=== PATIENT | male | born 1960 | race Caucasian/White ===

== ENCOUNTER 2019-11-09 16:12 | Emergency (ER) | payer MEDICAID, SELFPAY ==
[~2019-11-09] VITALS: Ht 170.2 cm; Wt 69.1 kg
[2019-11-09 16:48] LABS: BASO # 0.1 10^3/uL (0.0-0.2); BASO % 0.9 % (0.0-1.0); EOS # 1.6 10^3/uL (0.0-0.5); EOS % 13.7 % (0.0-3.0); HEMOGLOBIN 13.6 g/dl (13.5-17.5); LYMPH # 3.5 10^3/uL (1.5-5.0); LYMPH % 31.1 % (24.0-44.0); MEAN CORPUSCULAR HEMOGLOBIN 25.3 pg (27.0-33.0); MEAN CORPUSCULAR HGB CONC 32.4 g/dl (32.0-36.5); MEAN CORPUSCULAR VOLUME 78.1 fl (80.0-96.0); MONO # 0.8 10^3/uL (0.0-0.8); MONO % 7.1 % (0.0-5.0); NEUTROPHILS # 5.3 10^3/uL (1.5-8.5); NEUTROPHILS % 46.9 % (36.0-66.0); PLATELET COUNT, AUTOMATED 246 10^3/uL (150-450); RED BLOOD COUNT 5.38 10^6/uL (4.30-6.10); WHITE BLOOD COUNT 11.4 10^3/uL (4.0-10.0)
[2019-11-09 17:35] LABS: MAGNESIUM LEVEL 1.8 MG/DL (1.8-2.4); PHOSPHORUS LEVEL 3.4 MG/DL (2.5-4.9)
[2019-11-09 17:42] LABS: BLOOD UREA NITROGEN 12 MG/DL (7-18); CALCIUM LEVEL 8.7 MG/DL (8.5-10.1); CARBON DIOXIDE LEVEL 25 MEQ/L (21-32); CHLORIDE LEVEL 109 MEQ/L (98-107); CK-MB VALUE MASS 16.1 NG/ML (<3.6); CPK CREATINE PHOSPHOKINASE 846 U/L (39-308); CREATININE FOR GFR 1.05 MG/DL (0.70-1.30); FREE T4 0.96 NG/DL (0.76-1.46); GLOMERULAR FILTRATION RATE > 60.0 (>56); GLUCOSE, FASTING 109 MG/DL (70-100); POTASSIUM SERUM 4.2 MEQ/L (3.5-5.1); SODIUM LEVEL 140 MEQ/L (136-145); TROPONIN I 0.08 NG/ML (< 0.10)
--- NOTE | 2019-11-09 17:50 | REP ---
HISTORY: Dyspnea. COMPARISON: None. FINDINGS: The superior mediastinal structures are midline. The cardiac silhouette is unremarkable in size, shape and position. The diaphragmatic surfaces of the lungs are regular and the costophrenic angles are clear. The pulmonary gaviria are clear. The imaged osseous structures are intact. IMPRESSION: There is no acute cardiopulmonary disease. Electronically Signed by Hilario Corona DO 11/09/2019 06:21 P
[2019-11-09] MEDS ORDERED: NS 1,000 ML IV ONE (18:00)
[2019-11-09 22:43] LABS: CK-MB VALUE MASS 11.4 NG/ML (<3.6); MB/CK RELATIVE INDEX 1.83 (< OR =4); TROPONIN I 0.21 NG/ML (< 0.10)
--- NOTE | 2019-11-09 22:53 | ECGEPIP ---
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
--- NOTE | 2019-11-09 23:01 | ECGEPIP ---
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
[2019-11-09 23:31] VITALS: BP 141/85
[2019-11-10] MEDS ORDERED: METO1TAB32 PO (12:37)
[2019-11-10] MEDS ORDERED: ASPI81TAEC PO (12:37)
== END 2019-11-09 23:34 | disposition left against medical advice (07) ==
LOC: EDBD 16:12 → M ED 16:12
DX: R00.0 Tachycardia, unspecified (principal); R94.31 Abnormal electrocardiogram [ECG] [EKG]; R79.89 Other specified abnormal findings of blood chemistry; F17.200 Nicotine dependence, unspecified, uncomplicated; T59.94XA Toxic effect of unspecified gases, fumes and vapors, undetermined, initial encounter; Z53.21 Procedure and treatment not carried out due to patient leaving prior to being seen by health care provider

== ENCOUNTER 2019-11-10 00:07 | Observation (INO) | payer MEDICAID, SELFPAY ==
[~2019-11-10] VITALS: Ht 170.2 cm; Wt 77.1 kg
[2019-11-10] MEDS ORDERED: ISOVUE-370 76% 100ML VIAL (Q9967) As Ordered ONE (02:03)
--- NOTE | 2019-11-10 03:16 | REPVR ---
PROCEDURE INFORMATION: Exam: CT Angiography Chest With Contrast Exam date and time: 11/10/2019 1:50 AM Age: 59 years old Clinical indication: Abnormal findings; Abnormal diagnostic tests; Abnormal wbc; Additional info: SOB, elevated trops TECHNIQUE: Imaging protocol: Computed tomographic angiography of the chest with intravenous contrast. 3D rendering: MIP and/or 3D reconstructed images were created by the technologist. Radiation optimization: All CT scans at this facility use at least one of these dose optimization techniques: automated exposure control; mA and/or kV adjustment per patient size (includes targeted exams where dose is matched to clinical indication); or iterative reconstruction. Contrast material: ISO; Contrast volume: 75 ml; Contrast route: AC; COMPARISON: CR Chest, 2 view PA, Lat 2019-11-09 16:47 FINDINGS: Pulmonary arteries: No filling defects in the pulmonary arteries to suggest pulmonary emboli. Aorta: Unremarkable. No aortic aneurysm. No aortic dissection. Lungs: Scarring in the lung apices. Dependent subsegmental pulmonary atelectasis. Couple tiny pulmonary nodules, there is a nodule in the right lower lobe near the fissure measuring 3 mm. Pleural space: Unremarkable. No pneumothorax. No pleural effusion. Heart: Pronounced left cardiac ventricular wall thickening with a small focal area of low attenuation suggesting a previous myocardial infarction, recommend cardiology followup to evaluate for cardiomyopathy. Lymph nodes: Unremarkable. No enlarged lymph nodes. Bones/joints: Unremarkable. No acute fracture. Soft tissues: Unremarkable. IMPRESSION: 1. Pronounced left cardiac ventricular wall thickening with a small focal area of low attenuation suggesting a previous myocardial infarction, recommend cardiology followup to evaluate for cardiomyopathy. 2. Couple tiny pulmonary nodules, there is a nodule in the right lower lobe near the fissure measuring 3 mm. 3. No filling defects in the pulmonary arteries to suggest pulmonary emboli. COMMENT: As per Fleischner Society guidelines for follow-up and management of pulmonary nodules: For patients at low risk (minimal or absent history of smoking and of other known risk factors), no follow-up needed. For patient at high risk (history of smoking or of other known risk factors), recommend follow-up chest CT at 12 months; if unchanged, no further follow-up needed. Electronically signed by: Hayes Cash On 11/10/2019 03:16:20 AM
[2019-11-10] MEDS ORDERED: METOPROLOL TART 25 MG TABLET PO ONE (04:00)
[2019-11-10] MEDS ORDERED: ASPIRIN 81 MG CHEW TABLET PO ONE (04:00)
[2019-11-10 05:03] LABS: HEMATOCRIT 37.2 % (42.0-52.0); HEMOGLOBIN 11.8 g/dl (13.5-17.5); MEAN CORPUSCULAR HEMOGLOBIN 24.6 pg (27.0-33.0); MEAN CORPUSCULAR HGB CONC 31.7 g/dl (32.0-36.5); MEAN CORPUSCULAR VOLUME 77.5 fl (80.0-96.0); PLATELET COUNT, AUTOMATED 222 10^3/uL (150-450); WHITE BLOOD COUNT 12.5 10^3/uL (4.0-10.0)
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
[2019-11-10 05:22] LABS: BLOOD UREA NITROGEN 9 MG/DL (7-18); CALCIUM LEVEL 8.2 MG/DL (8.5-10.1); CARBON DIOXIDE LEVEL 27 MEQ/L (21-32); CHLORIDE LEVEL 108 MEQ/L (98-107); CHOLESTEROL LEVEL 194 MG/DL (<200); CHOLESTEROL RISK RATIO 6.258 (<5); CREATININE FOR GFR 1.16 MG/DL (0.70-1.30); GLOMERULAR FILTRATION RATE > 60.0 (>56); GLUCOSE, FASTING 90 MG/DL (70-100); HDL CHOLESTEROL 31 MG/DL (>40); LDL CHOLESTEROL 129 MG/DL (<100); NON-HDL-C 163 MG/DL; POTASSIUM SERUM 4.7 MEQ/L (3.5-5.1); SODIUM LEVEL 140 MEQ/L (136-145); TRIGLYCERIDES LEVEL 170 MG/DL (<150)
[2019-11-10 05:23] LABS: CK-MB VALUE MASS 9.3 NG/ML (<3.6); MB/CK RELATIVE INDEX 1.72 (< OR =4); TROPONIN I 0.18 NG/ML (< 0.10)
[2019-11-10 05:30] VITALS: BP 135/80
[2019-11-10] MEDS ORDERED: ATORVASTATIN 20 MG TAB PO SCH ×2 (09:00→21:00)
[2019-11-10] MEDS ORDERED: HEPARIN SOD (PORCINE) 5000 UNITS/ML VIAL SQ SCH (09:00)
[2019-11-10] MEDS ORDERED: METOPROLOL SUCC *XL* 25MG TAB (TopROL *XL*) PO SCH (09:00)
[2019-11-10 09:31] VITALS: BP 153/93
[2019-11-10] MEDS ORDERED: HEPARIN DRIP 25,000 UNITS in IV 1 EA IV SCH (09:38)
[2019-11-10] MEDS ORDERED: HEPARIN SOD (PORCINE) 5000 UNITS/ML VIAL IV PRN (09:45)
[2019-11-10] MEDS ORDERED: TICAGRELOR 90 MG TABLET (BRILINTA) PO ONE (10:30)
[2019-11-10 11:29] VITALS: BP 140/80
[2019-11-10 11:36] VITALS: BP 140/80
--- NOTE | 2019-11-10 11:54 | ECGEPIP ---
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 Electronically Signed on 11-10-2019 11:54:51 EST by Hayes Osman
--- NOTE | 2019-11-10 11:57 | ECGEPIP ---
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
[2019-11-10] MEDS ORDERED: SLF 3 ML SYR IV PRN (12:30)
[2019-11-10] MEDS ORDERED: ASPI81TAEC PO (12:37)
[2019-11-10] MEDS ORDERED: METO1TAB32 PO (12:37)
[2019-11-10] MEDS ORDERED: SLF 3 ML SYR IV SCH (14:00)
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
--- NOTE | 2019-11-10 14:29 | ECHO ---
DATE OF PROCEDURE: 11/10/2019 REFERRING PHYSICIAN: Dr. Andreas Bennett INDICATION: Dyspnea. HEIGHT: 170 cm WEIGHT: 76 kg 2D MEASUREMENTS: Ventricular septum: 1.98 cm Posterior wall: 1.38 cm Left ventricle diastole: 4.2 cm Left ventricle systole: 2.1 cm LVOT: 1.9 cm Aortic root: 2.8 cm Left atrium 3.1 cm Left atrial volume index: 58 Inferior vena cava: 1.7 cm (more than 50% respiratory variation). DOPPLER MEASUREMENTS: Aortic valve velocity: 202 cm/s LVOT velocity: 207 cm/s LVOT VTI: 38.4 cm Mild mitral regurgitation. Mitral E velocity: 104 cm/s Mitral A velocity: 83.2 cm/s Mitral deceleration time: 148 ms Very mild tricuspid regurgitation. Estimated right ventricle systolic pressure: 19-24 mmHg assuming a right atrial pressure of 5-10 mmHg. No pulmonic regurgitation. Pulmonary acceleration time: 137 milliseconds MITRAL ANNULAR TISSUE DOPPLER: E prime septal: 6.53 cm/s E prime lateral: 6.21 cm/s DESCRIPTION: Rhythm was sinus, image quality was adequate. This was a 2D M-mode, color flow Doppler and pulse wave Doppler examination and included mitral annular tissue Doppler. CONCLUSIONS: 1. Severe left ventricle hypertrophy, which was asymmetrical (symmetrical septal hypertrophy). Normal regional LV wall motion and wall thickening. Normal LV systolic function. Left ventricular ejection fraction 65 to 70% by visual estimate. Speckle pattern involving the ventricular septum. No dynamic intracavitary obstruction; however, mild increase in left ventricle outflow tract (LVOT) velocity. No systolic anterior motion of the mitral leaflets. Grade II LV diastolic dysfunction (pseudonormal LV diastolic filling pattern). 2. Structurally normal appearing mitral leaflets without mitral valve prolapse. No systolic anterior motion. Mild mitral regurgitation, which was directed posteriorly. 3. Normal right ventricle size. Right ventricle hypertrophy. Suggestive of normal pulmonary artery systolic pressure. Suggestive of normal estimated right ventricle systolic pressure. Suggestive of normal central venous pressure (5-10 mmHg). 4. By visual estimate, there appeared to be moderate left atrial dilatation. Left atrial volume index suggested severe left atrial enlargement; however, the two chamber view for aquisition of the left atrial volume index did not appear to be accurate due to image drop out of the anterior wall of the left atrium. 5. Mild aortic valve sclerosis of a 3-cusp aortic valve. No aortic regurgitation. 6. No pericardial effusion.
--- NOTE | 2019-11-10 20:10 | DS.PDOC ---
Discharge Summary General Date of Admission Nov 10, 2019 at 00:08 Date of Discharge 11/10/19 Attending Physician: JENNIFER CAMEJO MD Discharge Summary PROCEDURES PERFORMED DURING STAY: None ADMITTING DIAGNOSES: 1. Carbon monoxide exposure, hypertrophic cardiomyopathy DISCHARGE DIAGNOSES: 1. Carbon monoxide exposure, hypertrophic cardiomyopathy COMPLICATIONS/CHIEF COMPLAINT: Abnormal Ekg, Elevated Troponin. HISTORY OF PRESENT ILLNESS: 59 y.o male reportedly without any significant PMH was admitted for carbon monoxide exposure, EKG changes & troponinemia. Based on EKG & symptoms, it was suspected that patient had an NSTEMI, underwent LHC 1 year ago, reports obtained from [facility] in [place] which do no show extensive coronary disease at that time. He was starting on NSTEMI treatment, stat TTE showed severe LVH suggestive of hypertrophic cardiomyopathy, which coul d also explain the patient's EKG changes (ST depressions & deep T-wave inversions in the infero-lateral leads). Patient was evaluated by Cardiology (Dr. Quezada), his evaluation and recommendations are greatly appreciated, patient likely had slight troponin leakage related to Type II ischemia from C arbon monoxide exposure. Medical management for NSTEMI was discontinued prior to being initiated and patient will be discharged with outpatient follow up w/ Dr. Quezada & PCP. Patient will be discharged on Aspirin 81 mg & low dose Metoprolol Succinate as new medications. patient is advised to follow closely with Dr. Quezada for further management of his hypertrophic cardiomyopathy. Patient has remained asymptomatic since admission, currently he is clinically and hemodynamically stable for discharge. HOSPITAL COURSE: As above DISCHARGE MEDICATIONS: Please see below. ALLERGIES: Please see below. PHYSICAL EXAMINATION ON DISCHARGE: VITAL SIGNS: Please see below. GENERAL: No distress HEENT: normocephalic, atraumatic, moist mucous membranes NECK: supple CARDIOVASCULAR EXAMINATION: S1, S2, Systolic murmur appreciated RESPIRATORY EXAMINATION: clear to auscultation ABDOMINAL EXAMINATION: soft, non-tender, non-distended, +BS EXTREMITIES: ROM intact SKIN: no rash NEUROLOGICAL EXAMINATION: no focal deficits PSYCHIATRIC EXAMINATION: calm and cooperative LABORATORY DATA: Please see below. IMAGING: TTE w/ significant LVH, normal EF, no wall motion abnormalities PROGNOSIS: Fair ACTIVITY: As tolerated DIET: Cardiac DISCHARGE PLAN: Follow up w/ Straight Knife Machine Cutter & PCP in 1-2 weeks DISPOSITION: 01 Home, Self-Care. DISCHARGE INSTRUCTIONS: 1. as above DISCHARGE CONDITION: Stable TIME SPENT ON DISCHARGE: Greater than 35 minutes. Vital Signs/I&Os Vital Signs Date Time Temp Pulse Resp B/P (MAP) Pulse Ox O2 Delivery O2 Flow Rate FiO2 11/10/19 11:36 98.1 73 18 140/80 (100) 99 Room Air Laboratory Data Labs 24H Laboratory Tests 2 11/10/19 04:43: Nucleated Red Blood Cells % (auto) 0.0, Anion Gap 5L, Glomerular Filtration Rate > 60.0, Calcium Level 8.2L, Total Creatine Kinase 541H, Creatine Kinase MB 9.3H, Creatine Kinase MB Relative Index 1.72, Troponin I 0.18H, Triglycerides Level 170H, Total Cholesterol 194, LDL Cholesterol 129H, Non-HDL Cholesterol (LDL + VLDL) 163, Total HDL Cholesterol 31L, Cholesterol/HDL Ratio 6.258H 11/10/19 08:44: Troponin I 0.11#H 11/10/19 10:15: Activated Partial Thromboplast Time 34.0 CBC/BMP Laboratory Tests 11/10/19 04:43 Discharge Medications Scheduled Aspirin (Aspirin EC) 81 Mg Tablet.dr, 81 MG PO DAILY Metoprolol Succinate (Metoprolol Succinate) 25 Mg Tab.er.24h, 25 MG PO DAILY Allergies Coded Allergies: No Known Allergies (Unverified , 11/09/19) JENNIFER CAMEJO MD Nov 10, 2019 20:09
[2019-11-10] MEDS ORDERED: TICAGRELOR 90 MG TABLET (BRILINTA) PO SCH (21:00)
[2019-11-11] MEDS ORDERED: ASPIRIN 81 MG ENTERIC TAB PO SCH (09:00)
== END 2019-11-10 14:34 | disposition home or self-care (01) ==
LOC: M ED 00:07 → M ED INP 00:08 → M MSPAV 05:29 → M PCU 09:09
PROVIDERS: ADMIT Internal Medicine; ATTEND Internal Medicine
DX: Z77.098 Contact with and (suspected) exposure to other hazardous, chiefly nonmedicinal, chemicals (principal); I42.2 Other hypertrophic cardiomyopathy; R94.31 Abnormal electrocardiogram [ECG] [EKG]; R74.8 Abnormal levels of other serum enzymes; R91.8 Other nonspecific abnormal finding of lung field; R06.02 Shortness of breath; Z79.899 Other long term (current) drug therapy; Z79.82 Long term (current) use of aspirin; F17.210 Nicotine dependence, cigarettes, uncomplicated
CPT/HCPCS: 36415; 71275; 80048; 80061; 82550; 82553; 85027; 85730; 93005; 93306; 96372; 99285; Q9967

== ENCOUNTER 2019-11-14 17:34 | Emergency (ER) | payer MEDICAID, SELFPAY ==
[~2019-11-14] VITALS: Ht 170.2 cm; Wt 73.1 kg
[~2019-11-14 17:34] MED LIST: ASPI81TAEC PO; METO1TAB32 PO
[2019-11-14 17:54] LABS: BASO # 0.1 10^3/uL (0.0-0.2); BASO % 0.7 % (0.0-1.0); EOS # 1.2 10^3/uL (0.0-0.5); HEMATOCRIT 40.8 % (42.0-52.0); HEMOGLOBIN 12.7 g/dl (13.5-17.5); LYMPH # 3.9 10^3/uL (1.5-5.0); LYMPH % 30.4 % (24.0-44.0); MEAN CORPUSCULAR HEMOGLOBIN 24.3 pg (27.0-33.0); MEAN CORPUSCULAR HGB CONC 31.1 g/dl (32.0-36.5); MEAN CORPUSCULAR VOLUME 78.2 fl (80.0-96.0); MONO # 0.9 10^3/uL (0.0-0.8); MONO % 6.8 % (0.0-5.0); NEUTROPHILS # 6.8 10^3/uL (1.5-8.5); NEUTROPHILS % 52.7 % (36.0-66.0); PLATELET COUNT, AUTOMATED 258 10^3/uL (150-450); RED BLOOD COUNT 5.22 10^6/uL (4.30-6.10); WHITE BLOOD COUNT 12.9 10^3/uL (4.0-10.0)
[2019-11-14 18:05] LABS: INR 1.12; PROTHROMBIN TIME 14.1 SECONDS (11.8-14.0)
[2019-11-14 18:06] LABS: PARTIAL THROMBOPLASTIN TIME 33.1 SECONDS (25.0-38.4)
--- NOTE | 2019-11-14 18:14 | REP ---
Clinical: Chest pain . Comparison: 11/09/2019 . Findings: The mediastinum and cardiac silhouette are stable and within normal limits for portable technique. The lung gaviria are clear without acute consolidation, effusion, or pneumothorax. Skeletal structures are intact. Impression: No acute cardiopulmonary process appreciated. Electronically Signed by Julius Montalvo MD 11/14/2019 06:06 P
[2019-11-14 18:23] LABS: ALBUMIN 3.7 GM/DL (3.2-5.2); ALT/SGPT 29 U/L (12-78); BILIRUBIN,DIRECT 0.1 MG/DL (0.0-0.2); BILIRUBIN,TOTAL 0.6 MG/DL (0.2-1.0); BLOOD UREA NITROGEN 16 MG/DL (7-18); CALCIUM LEVEL 8.7 MG/DL (8.5-10.1); CARBON DIOXIDE LEVEL 27 MEQ/L (21-32); CHLORIDE LEVEL 103 MEQ/L (98-107); CK-MB VALUE MASS 6.3 NG/ML (<3.6); CPK CREATINE PHOSPHOKINASE 509 U/L (39-308); CREATININE FOR GFR 1.25 MG/DL (0.70-1.30); FREE T4 0.99 NG/DL (0.76-1.46); GLOMERULAR FILTRATION RATE > 60.0 (>56); GLUCOSE, FASTING 101 MG/DL (70-100); LIPASE 128 U/L (73-393); MB/CK RELATIVE INDEX 1.24 (< OR =4); NT-PRO BNP 547 PG/ML (<125); POTASSIUM SERUM 3.7 MEQ/L (3.5-5.1); SODIUM LEVEL 139 MEQ/L (136-145); TOTAL PROTEIN 7.3 GM/DL (6.4-8.2); TROPONIN I 0.09 NG/ML (< 0.10)
[2019-11-14] MEDS ORDERED: atenoloL 50 MG TAB PO ONE (18:45)
--- NOTE | 2019-11-14 19:39 | ECGEPIP ---
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
[2019-11-14] MEDS ORDERED: ATEN50TA2 PO (20:13)
[2019-11-14 20:30] VITALS: BP 127/70
== END 2019-11-14 20:42 | disposition home or self-care (01) ==
LOC: EDBD 17:34 → M ED 17:34
DX: I42.9 Cardiomyopathy, unspecified (principal); I51.7 Cardiomegaly; F17.200 Nicotine dependence, unspecified, uncomplicated; Z79.82 Long term (current) use of aspirin; Z79.899 Other long term (current) drug therapy

== ENCOUNTER 2019-12-06 13:35 | Emergency (ER) | payer MEDICAID, OTHER ==
[~2019-12-06] VITALS: Ht 170.2 cm; Wt 76.4 kg
[~2019-12-06 13:35] MED LIST changes: +ATEN50TA2 PO
[2019-12-06 14:14] LABS: BASO # 0.1 10^3/uL (0.0-0.2); BASO % 0.9 % (0.0-1.0); EOS # 1.4 10^3/uL (0.0-0.5); HEMATOCRIT 40.6 % (42.0-52.0); HEMOGLOBIN 12.9 g/dl (13.5-17.5); LYMPH # 3.4 10^3/uL (1.5-5.0); LYMPH % 29.1 % (24.0-44.0); MEAN CORPUSCULAR HGB CONC 31.8 g/dl (32.0-36.5); MEAN CORPUSCULAR VOLUME 78.7 fl (80.0-96.0); MONO # 0.7 10^3/uL (0.0-0.8); MONO % 5.9 % (0.0-5.0); NEUTROPHILS # 6.1 10^3/uL (1.5-8.5); NEUTROPHILS % 51.8 % (36.0-66.0); PLATELET COUNT, AUTOMATED 211 10^3/uL (150-450); RED BLOOD COUNT 5.16 10^6/uL (4.30-6.10); WHITE BLOOD COUNT 11.7 10^3/uL (4.0-10.0)
[2019-12-06] MEDS ORDERED: methylPREDNISolone INJ 125 MG/2 ML VIAL (J2930) IV ONE (14:15)
[2019-12-06] MEDS ORDERED: IPRATROPIUM 0.5MG/ALBUTEROL 2.5MG INH SOL UD 3ML (DUONEB)(J7620) NEB ONE (14:15)
[2019-12-06] MEDS ORDERED: MECLIZINE 25 MG TABLET PO ONE (14:15)
[2019-12-06] MEDS ORDERED: NS 1,000 ML IV ONE (14:15)
--- NOTE | 2019-12-06 14:41 | REP ---
INDICATION: Dizziness PROCEDURE: CT head without contrast COMPARISON STUDIES: No prior similar studies FINDINGS: No acute bleed or acute large vessel territorial infarct. Ventricles, cisterns and sulci are within normal limits. No mass effect or midline shift. No abnormal fluid collections. There is scattered paranasal sinus mucosal thickening in the ethmoid sinuses. Mastoid air cells are clear. The sinuses are incompletely imaged. IMPRESSION: No acute findings. Normal examination. Electronically Signed by Lavelle Shearer MD 12/06/2019 02:33 P
[2019-12-06 14:52] LABS: ALBUMIN 3.6 GM/DL (3.2-5.2); ALT/SGPT 27 U/L (12-78); BILIRUBIN,TOTAL 0.6 MG/DL (0.2-1.0); BLOOD UREA NITROGEN 12 MG/DL (7-18); CALCIUM LEVEL 8.8 MG/DL (8.5-10.1); CARBON DIOXIDE LEVEL 29 MEQ/L (21-32); CHLORIDE LEVEL 105 MEQ/L (98-107); CPK CREATINE PHOSPHOKINASE 187 U/L (39-308); CREATININE FOR GFR 1.11 MG/DL (0.70-1.30); GLOMERULAR FILTRATION RATE > 60.0 (>56); GLUCOSE, FASTING 78 MG/DL (70-100); MB/CK RELATIVE INDEX 2.67 (< OR =4); SODIUM LEVEL 140 MEQ/L (136-145); TOTAL PROTEIN 7.5 GM/DL (6.4-8.2); TROPONIN I 0.07 NG/ML (< 0.10)
--- NOTE | 2019-12-06 14:57 | REP ---
Chest x-ray: Two views. History: Short of breath. Comparison chest x-ray: November 14, 2019. Findings: Monitoring electrodes are seen overlying the chest. Lungs are well inflated and clear. Pleural angles are sharp. Heart size is normal. Pulmonary vasculature is not increased. Impression: No active disease. Electronically Signed by Connor Guillaume MD 12/06/2019 02:48 P
[2019-12-06] MEDS ORDERED: ISOVUE-370 76% 100ML VIAL (Q9967) As Ordered ONE (15:35)
--- NOTE | 2019-12-06 16:21 | REP ---
CT pulmonary angiogram: With IV contrast. History: Shortness of breath. Rule out pulmonary embolus. Comparison studies: November 10, 2019. Contrast dose: 75 ML of Isovue [address] technique: Helical scanning is acquired and overlapping 1.5 mm and contiguous 3 mm axial images are reformatted. In addition, maximum intensity projection and multiplanar re-formation images are generated in sagittal and coronal imaging projections. CT pulmonary angiographic findings: There is good opacification in the pulmonary arterial tree. No filling defect or vessel cutoff is seen to suggest pulmonary embolism. There is no evidence of aortic aneurysm or dissection. No pleural or pericardial effusion is seen. There is diffuse thickening of the left ventricular myocardium consistent with left ventricular hypertrophy. The intervertebral septum is a little thicker than the rest of the myocardium measuring up to 2.8 cm in thickness on axial CT images. This finding is unchanged from the comparison CT study. There is no evidence of infiltrate in the lung gaviria. No pulmonary nodule or mass like opacity is seen. No bony destructive lesion is appreciated. Normal adrenal glands. The visualized upper abdominal structures are unremarkable. There are two normal-sized AP window region lymph nodes. No definite mediastinal adenopathy. Impression: No CT evidence of pulmonary embolus. Fairly impressive left ventricular myocardial hypertrophy particularly septal hypertrophy, up to 2.8 cm in thickness on axial CT images. Otherwise no acute disease. Electronically Signed by Connor Guillaume MD 12/06/2019 05:04 P
[2019-12-06 17:11] LABS: CK-MB VALUE MASS 4.4 NG/ML (<3.6); MB/CK RELATIVE INDEX 2.5 (< OR =4); TROPONIN I 0.08 NG/ML (< 0.10)
[2019-12-06] MEDS ORDERED: PRED10TA2 PO (17:27)
[2019-12-06] MEDS ORDERED: VENTAER INH (17:27)
[2019-12-06] MEDS ORDERED: MECL1TAB31 PO (17:27)
[2019-12-06 17:35] VITALS: BP 131/71
--- NOTE | 2019-12-06 21:15 | ECGEPIP ---
[facility] - ED Test Date: 2019-12-06 Pat Name: ERNIE DANIELLE Department: Room: - Gender: Male Automatic Operator: MARITO : 1960 Requested By: Amelia Thompson Order Number: [id number] Reading MD: Amelia Thompson Measurements Intervals Whittaker Rate: 83 P: 59 MD: 161 QRS: -13 QRSD: 111 T: 138 QT: 367 QTc: 433 Interpretive Statements SINUS RHYTHM POSSIBLE LEFT ATRIAL ENLARGEMENT MODERATE INTRAVENTRICULAR CONDUCTION DELAY ST DEVIATION AND MARKED T-WAVE ABNORMALITY, CONSIDER ISCHEMIA SIMILAR 11/14/19 Electronically Signed on 12-06-2019 21:14:54 EST by Amelia Thompson
--- NOTE | 2019-12-06 21:17 | ECGEPIP ---
[facility] - ED Test Date: 2019-12-06 Pat Name: ERNIE DANIELLE Department: Room: - Gender: Male Unbundler: ray : 1960 Requested By: CROW MONGE Order Number: [id number] Reading MD: Amelia Thompson Measurements Intervals Gravel Switch Rate: 102 P: 57 FL: 132 QRS: -37 QRSD: 107 T: 162 QT: 342 QTc: 447 Interpretive Statements SINUS TACHYCARDIA WITH OCCASIONAL VENTRICULAR PREMATURE COMPLEXES POSSIBLE LEFT ATRIAL ENLARGEMENT MARKED LEFT AXIS DEVIATION ST DEVIATION AND MODERATE T-WAVE ABNORMALITY, CONSIDER ISCHEMIA INCREASED RATE 12/06/19 Electronically Signed on 12-06-2019 21:17:16 EST by Amelia Thompson
--- NOTE | 2019-12-07 13:10 | ED PDOC ---
Post-Departure Follow-Up dr wynn faxed formal report of cta chest for fu Porsche Mcconnell MD Dec 07, 2019 13:10
== END 2019-12-06 17:46 | disposition home or self-care (01) ==
LOC: M ED 13:35
DX: J20.9 Acute bronchitis, unspecified (principal); R42 Dizziness and giddiness; I42.9 Cardiomyopathy, unspecified; R00.0 Tachycardia, unspecified; I45.89 Other specified conduction disorders; R06.02 Shortness of breath; K21.9 Gastro-esophageal reflux disease without esophagitis; Z79.82 Long term (current) use of aspirin; Z79.899 Other long term (current) drug therapy
CPT/HCPCS: 70450; 71046; 71275; 80053; 82550; 82553; 84443; 85025; 93005; 94640; 96374; 99284; J2930; Q9967

== ENCOUNTER → 2020-04-23 | Outpatient (REF) | payer OTHER, MEDICAID ==
[~2020-04-23] MED LIST changes: +MECL1TAB31 PO; +PRED10TA2 PO; +VENTAER INH
[2020-04-23 17:13] LABS: BASO # 0.1 10^3/uL (0.0-0.2); BASO % 1.1 % (0.0-1.0); EOS # 1.5 10^3/uL (0.0-0.5); EOS % 16.2 % (0.0-3.0); HEMATOCRIT 41.5 % (42.0-52.0); LYMPH % 32.8 % (24.0-44.0); MEAN CORPUSCULAR HGB CONC 31.3 g/dl (32.0-36.5); MEAN CORPUSCULAR VOLUME 76.6 fl (80.0-96.0); MONO # 0.5 10^3/uL (0.0-0.8); MONO % 5.9 % (0.0-5.0); NEUTROPHILS % 43.7 % (36.0-66.0); PLATELET COUNT, AUTOMATED 236 10^3/uL (150-450); RED BLOOD COUNT 5.42 10^6/uL (4.30-6.10); WHITE BLOOD COUNT 9.2 10^3/uL (4.0-10.0)
[2020-04-23 17:33] LABS: ALT/SGPT 28 U/L (12-78); BILIRUBIN,TOTAL 0.6 MG/DL (0.2-1.0); BLOOD UREA NITROGEN 15 MG/DL (7-18); CARBON DIOXIDE LEVEL 28 MEQ/L (21-32); CHLORIDE LEVEL 107 MEQ/L (98-107); CHOLESTEROL LEVEL 194 MG/DL (<200); CHOLESTEROL RISK RATIO 6.466 (<5); CREATININE FOR GFR 1.08 MG/DL (0.70-1.30); FREE T4 0.99 NG/DL (0.76-1.46); GLOMERULAR FILTRATION RATE > 60.0 (>56); GLUCOSE, FASTING 94 MG/DL (70-100); HDL CHOLESTEROL 30 MG/DL (>40); LDL CHOLESTEROL 132 MG/DL (<100); NON-HDL-C 164 MG/DL; POTASSIUM SERUM 4.5 MEQ/L (3.5-5.1); SODIUM LEVEL 142 MEQ/L (136-145); THYROID STIMULATING HORMONE 0.923 uIU/ML (0.358-3.740); TOTAL PROTEIN 7.8 GM/DL (6.4-8.2); TRIGLYCERIDES LEVEL 158 MG/DL (<150)
[2020-04-23 18:00] LABS: TOTAL 25(OH) VITAMIN D 13.6 NG/ML (30.0-100.0)
[2020-04-23 19:02] LABS: HEMOGLOBIN A1c 5.8 %
== END ==
LOC: M LAB REF 16:14
PROVIDERS: ATTEND Nurse Practitioner Family
DX: Z13.29 Encounter for screening for other suspected endocrine disorder (principal); Z12.11 Encounter for screening for malignant neoplasm of colon; F17.200 Nicotine dependence, unspecified, uncomplicated

== ENCOUNTER → 2020-05-22 | Outpatient (CLI) | payer OTHER ==
[~2020-05-22] MED LIST changes: +E-Z-GAS II EFFERVESCENT PACKET (SODIUM BICARB./CITRIC ACID/SIMETHICONE) As Ordered ONE; +E-Z-HD 98% w/w 340GM SUSP BTL As Ordered ONE; +E-Z-PAQUE 96% w/w SUSP 176GM BTL As Ordered ONE
--- NOTE | 2020-06-02 07:59 | REP ---
Examination Requested: Esophagram Barium Swallow Reason For Exam/Comment: Dysphasia Esophagram: The procedure was performed JORDYN Toney, under the direct supervision of Dr. Guillaume. The images were reviewed with Dr. Guillaume. A single PA chest x-ray is submitted as a active directory architect film. The superior mediastinal structures are midline. The heart size is within normal limits. The lungs are clear. Liquid barium and gas producing granules were given in the erect position as well as liquid barium in the prone oblique position, in order to perform a double contrast esophagram examination. Oral and pharyngeal stages of the examination were unremarkable. Esophageal transport is efficient and there is no esophagitis, stricture, or mucosal ring noted. There is no hiatal hernia noted. Gastroesophageal reflux was not visualized throughout the course of the exam. Impression: 1. Unremarkable esophagram. 0.2 minutes of fluoroscopy time was utilized for this procedure. Some fluoroscopic images are performed with last image hold technology. These images require no additional radiation. Reviewed by JORDYN Foss 05/22/2020 04:54 P Electronically Signed by Connor Guillaume MD 06/02/2020 07:50 A
== END ==
LOC: M RAD 08:07
PROVIDERS: ATTEND Physician Assistant Medical
DX: R13.10 Dysphagia, unspecified (principal)

== ENCOUNTER → 2020-08-23 | Outpatient (CLI) | payer OTHER ==
[~2020-08-23] MED LIST changes: -E-Z-GAS II EFFERVESCENT PACKET (SODIUM BICARB./CITRIC ACID/SIMETHICONE) As Ordered ONE; -E-Z-HD 98% w/w 340GM SUSP BTL As Ordered ONE; -E-Z-PAQUE 96% w/w SUSP 176GM BTL As Ordered ONE
== END ==
LOC: M LABSMTC 08:43
PROVIDERS: ATTEND Anesthesiology
DX: Z01.812 Encounter for preprocedural laboratory examination (principal); Z20.828 Contact with and (suspected) exposure to other viral communicable diseases
CPT/HCPCS: C9803; U0003

== ENCOUNTER → 2020-11-19 | Outpatient (CLI) | payer OTHER ==
[~2020-11-19] MED LIST changes: +METO1TAB32
== END ==
LOC: M LABSMTC 10:16
PROVIDERS: ATTEND Anesthesiology
DX: Z20.828 Contact with and (suspected) exposure to other viral communicable diseases (principal)

== ENCOUNTER 2020-11-24 08:14 | Day surgery (SDC) | payer OTHER ==
[~2020-11-24] VITALS: Ht 170.2 cm; Wt 71.2 kg
[~2020-11-24 08:14] MED LIST changes: +NS 1,000 ML IV ONE
[2020-11-24] MEDS ORDERED: ASPI81CH33 PO (08:52)
[2020-11-24] MEDS ORDERED: LIDOCAINE 2% 100MG/5ML SDV (FOR ANES.) As Ordered ONE (09:02)
[2020-11-24] MEDS ORDERED: propofoL 200 MG/20 ML VIAL As Ordered ONE ×3 (09:02→10:46)
--- NOTE | 2020-11-24 11:24 | ROOR ---
Patient Name: Med Nevarez Procedure Date: 11/24/2020 9:13 AM Date of : 1960 Age: 60 Room: [facility] Gender: Male Note Status: Finalized Procedure: Colonoscopy Indications: Screening for colorectal malignant neoplasm Providers: Carlos Zabala MD Referring MD: Catrachita Martinez NP Requesting Provider: Medicines: Monitored Anesthesia Care Complications: No immediate complications. Procedure: Pre-Anesthesia Assessment: - Prior to the procedure, a History and Physical was performed, and patient medications and allergies were reviewed. The patient is competent. The risks and benefits of the procedure and the sedation options and risks were discussed with the patient. All questions were answered and informed consent was obtained. Patient identification and proposed procedure were verified by the physician, the nurse and the anesthesiologist in the procedure room. Mental Status Examination: alert and oriented. Airway Examination: normal oropharyngeal airway and neck mobility. Respiratory Examination: clear to auscultation. CV Examination: normal. Prophylactic Antibiotics: The patient does not require prophylactic antibiotics. Prior Anticoagulants: The patient has taken no previous anticoagulant or antiplatelet agents. ASA Grade Assessment: II - A patient with mild systemic disease. After reviewing the risks and benefits, the patient was deemed in satisfactory condition to undergo the procedure. The anesthesia plan was to use monitored anesthesia care (MAC). Immediately prior to administration of medications, the patient was re-assessed for adequacy to receive sedatives. The heart rate, respiratory rate, oxygen saturations, blood pressure, adequacy of pulmonary ventilation, and response to care were monitored throughout the procedure. The physical status of the patient was re-assessed after the procedure. The Colonoscope was introduced through the anus and advanced to the terminal ileum, with identification of the appendiceal orifice and IC valve. The colonoscopy was performed without difficulty. The patient tolerated the procedure well. The quality of the bowel preparation was good. The terminal ileum, ileocecal valve, appendiceal orifice, and rectum were photographed. Scope insertion time was 3 minutes. Scope withdrawal time was 9 minutes. The total duration of the procedure was 15 minutes. Findings: The perianal and digital rectal examinations were normal. The terminal ileum appeared normal. Two pedunculated polyps were found in the proximal descending colon and distal descending colon. The polyps were 15 to 30 mm in size. These polyps were removed with a hot snare. Resection and retrieval were complete. To close a defect after polypectomy, four hemostatic clips were successfully placed. There was no bleeding at the end of the procedure. Loop ligation. There was no bleeding during and at the end of the procedure. Large, non-bleeding rectal varices were found. Impression: - The examined portion of the ileum was normal. - Two 15 to 30 mm polyps in the proximal descending colon and in the distal descending colon, removed with a hot snare. Resected and retrieved. Clips were placed. SKIP. - Rectal varices. Recommendation: - Patient has a contact number available for emergencies. The signs and symptoms of potential delayed complications were discussed with the patient. Return to normal activities tomorrow. Written discharge instructions were provided to the patient. - Clear liquid diet for 1 day, then advance as tolerated to high fiber diet. - Continue present medications. - Await pathology results. - Repeat colonoscopy in 1 year for surveillance based on pathology results. - Return to GI clinic in [facility] (address [address], [address], [place], [facility]) in 4 -- 6 weeks. Please call GI clinic @ [phone] for apppointment date and time. - Return to primary care physician. Procedure Code(s): --- Professional --- 94631, Colonoscopy, flexible; with removal of tumor(s), polyp(s), or other lesion(s) by snare technique Diagnosis Code(s): --- Professional --- Z12.11, Encounter for screening for malignant neoplasm of colon K63.5, Polyp of colon K64.8, Other hemorrhoids CPT copyright 2019 [employer]. All rights reserved. The codes documented in this report are preliminary and upon manager multicultural review may be revised to meet current compliance requirements. Carlos Zabala MD Carlos Zabala MD 11/24/2020 11:24:02 AM Electronically signed by Carlos Zabala MD Number of Addenda: 0 Note Initiated On: 11/24/2020 9:13 AM Estimated Blood Loss: Estimated blood loss was minimal.
[2020-11-24 11:25] VITALS: BP 124/64
== END 2020-11-24 12:00 | disposition home or self-care (01) ==
LOC: M OPP 08:14
PROVIDERS: ATTEND Internal Medicine Gastroenterology
DX: Z12.11 Encounter for screening for malignant neoplasm of colon (principal); K63.5 Polyp of colon; K64.8 Other hemorrhoids

== ENCOUNTER → 2021-01-23 | Outpatient (REF) | payer OTHER ==
[~2021-01-23] MED LIST changes: +ASPI-569 PO; +ASPI81CH33 PO; -ASPI81TAEC PO; -NS 1,000 ML IV ONE
[2021-01-23 13:13] LABS: BASO # 0.1 10^3/uL (0.0-0.2); BASO % 0.8 % (0.0-1.0); EOS # 1.5 10^3/uL (0.0-0.5); HEMATOCRIT 39.7 % (42.0-52.0); HEMOGLOBIN 12.1 g/dl (13.5-17.5); LYMPH % 29.5 % (24.0-44.0); MEAN CORPUSCULAR HEMOGLOBIN 24.4 pg (27.0-33.0); MEAN CORPUSCULAR HGB CONC 30.5 g/dl (32.0-36.5); MEAN CORPUSCULAR VOLUME 80.2 fl (80.0-96.0); MONO # 0.7 10^3/uL (0.0-0.8); MONO % 6.6 % (2.0-8.0); NEUTROPHILS # 4.9 10^3/uL (1.5-8.5); NEUTROPHILS % 47.8 % (36.0-66.0); PLATELET COUNT, AUTOMATED 225 10^3/uL (150-450); RED BLOOD COUNT 4.95 10^6/uL (4.30-6.10); WHITE BLOOD COUNT 10.3 10^3/uL (4.0-10.0)
[2021-01-23 13:34] LABS: ALBUMIN 3.7 GM/DL (3.2-5.2); ALT/SGPT 20 U/L (12-78); BILIRUBIN,TOTAL 0.7 MG/DL (0.2-1.0); BLOOD UREA NITROGEN 17 MG/DL (7-18); CALCIUM LEVEL 9.1 MG/DL (8.5-10.1); CARBON DIOXIDE LEVEL 28 MEQ/L (21-32); CHLORIDE LEVEL 107 MEQ/L (98-107); CHOLESTEROL LEVEL 187 MG/DL (<200); CHOLESTEROL RISK RATIO 5.666 (<5); CREATININE FOR GFR 1.25 MG/DL (0.70-1.30); GLOMERULAR FILTRATION RATE > 60.0 (>56); GLUCOSE, FASTING 92 MG/DL (70-100); HDL CHOLESTEROL 33 MG/DL (>40); LDL CHOLESTEROL 122 MG/DL (<100); NON-HDL-C 154 MG/DL; POTASSIUM SERUM 4.9 MEQ/L (3.5-5.1); SODIUM LEVEL 137 MEQ/L (136-145); TRIGLYCERIDES LEVEL 159 MG/DL (<150)
[2021-01-23 14:09] LABS: HEMOGLOBIN A1c 5.7 %
== END ==
LOC: M LAB REF 12:44
PROVIDERS: ATTEND Nurse Practitioner Family
DX: R73.03 Prediabetes (principal); F17.200 Nicotine dependence, unspecified, uncomplicated; E55.9 Vitamin D deficiency, unspecified; E78.5 Hyperlipidemia, unspecified

== ENCOUNTER → 2021-04-22 | Outpatient (CLI) | payer OTHER | LOC: M LABSMTC 10:17 | PROVIDERS: ATTEND Anesthesiology | DX: Z01.812 Encounter for preprocedural laboratory examination (principal); Z20.822 Contact with and (suspected) exposure to COVID-19 ==

== ENCOUNTER 2021-04-27 09:02 | Day surgery (SDC) | payer OTHER ==
[~2021-04-27] VITALS: Ht 170.2 cm; Wt 68.0 kg
[~2021-04-27 09:02] MED LIST changes: +NS 1,000 ML IV ONE
[2021-04-27] MEDS ORDERED: LIDOCAINE 2% 100MG/5ML SDV (FOR ANES.) As Ordered ONE (10:58)
[2021-04-27] MEDS ORDERED: propofoL 200 MG/20 ML VIAL As Ordered ONE ×2 (10:58→11:16)
[2021-04-27] MEDS ORDERED: ePHEDrine SULFATE 25 MG/5 ML(5MG/ML) SYRINGE As Ordered ONE (11:37)
--- NOTE | 2021-04-27 11:43 | ROOR ---
Patient Name: Med Nevarez Procedure Date: 04/27/2021 11:06 AM Date of : 1960 Age: 61 Room: [facility] Gender: Male Note Status: Finalized Procedure: Colonoscopy Indications: High risk colon cancer surveillance: Personal history of adenoma (10 mm or greater in size), High risk colon cancer surveillance: Personal history of adenoma with high grade dysplasia Providers: Carlos Zabala MD Referring MD: Catrachita Martinez NP Requesting Provider: Medicines: Monitored Anesthesia Care Complications: No immediate complications. Procedure: Pre-Anesthesia Assessment: - Prior to the procedure, a History and Physical was performed, and patient medications and allergies were reviewed. The patient is competent. The risks and benefits of the procedure and the sedation options and risks were discussed with the patient. All questions were answered and informed consent was obtained. Patient identification and proposed procedure were verified by the physician, the nurse and the anesthesiologist in the procedure room. Mental Status Examination: alert and oriented. Airway Examination: normal oropharyngeal airway and neck mobility. Respiratory Examination: clear to auscultation. CV Examination: normal. Prophylactic Antibiotics: The patient does not require prophylactic antibiotics. Prior Anticoagulants: The patient has taken no previous anticoagulant or antiplatelet agents. ASA Grade Assessment: II - A patient with mild systemic disease. After reviewing the risks and benefits, the patient was deemed in satisfactory condition to undergo the procedure. The anesthesia plan was to use monitored anesthesia care (MAC). Immediately prior to administration of medications, the patient was re-assessed for adequacy to receive sedatives. The heart rate, respiratory rate, oxygen saturations, blood pressure, adequacy of pulmonary ventilation, and response to care were monitored throughout the procedure. The physical status of the patient was re-assessed after the procedure. The Colonoscope was introduced through the anus and advanced to the terminal ileum, with identification of the appendiceal orifice and IC valve. The colonoscopy was performed without difficulty. The patient tolerated the procedure well. The quality of the bowel preparation was good. The terminal ileum, ileocecal valve, appendiceal orifice, and rectum were photographed. Scope insertion time was 2 minutes. Scope withdrawal time was 10 minutes. The total duration of the procedure was 12 minutes. Findings: The perianal and digital rectal examinations were normal. The terminal ileum appeared normal. Two sessile polyps were found in the recto-sigmoid colon. The polyps were 3 to 4 mm in size. These polyps were removed with a jumbo cold forceps. Resection and retrieval were complete. Verification of patient identification for the specimen was done by the physician and nurse using the patient's name, date and medical record number. Estimated blood loss was minimal. A 20 mm polyp was found in the ascending colon. The polyp was semi-sessile. The polyp was removed with a hot snare. Resection and retrieval were complete. To close a defect after polypectomy, one hemostatic clip was successfully placed. There was no bleeding at the end of the procedure. Many small and large-mouthed diverticula were found in the sigmoid colon. There was no evidence of diverticular bleeding. Medium sized, non-bleeding rectal varices were found. Impression: - The examined portion of the ileum was normal. - Two 3 to 4 mm polyps at the recto-sigmoid colon, removed with a jumbo cold forceps. Resected and retrieved. - One 20 mm polyp in the ascending colon, removed with a hot snare. Resected and retrieved. Clip was placed. - Moderate diverticulosis in the sigmoid colon. There was no evidence of diverticular bleeding. - Rectal varices. Recommendation: - Patient has a contact number available for emergencies. The signs and symptoms of potential delayed complications were discussed with the patient. Return to normal activities tomorrow. Written discharge instructions were provided to the patient. - High fiber diet. - Continue present medications. - Await pathology results. - Check Liver work up ( if not evaluated in past) in 1 month. - Repeat colonoscopy in 1 year for surveillance of multiple polyps and due to personal history of colon polyps in past Colonoscopy. - Telephone GI clinic for pathology results in 2 weeks. - Return to primary care physician. Procedure Code(s): --- Professional --- 39188, Colonoscopy, flexible; with removal of tumor(s), polyp(s), or other lesion(s) by snare technique 20318, 61, Colonoscopy, flexible; with biopsy, single or multiple Diagnosis Code(s): --- Professional --- K63.5, Polyp of colon K64.8, Other hemorrhoids Z86.010, Personal history of colonic polyps K57.30, Diverticulosis of large intestine without perforation or abscess without bleeding CPT copyright 2019 [employer]. All rights reserved. The codes documented in this report are preliminary and upon power generation equipment repairer review may be revised to meet current compliance requirements. Carlos Zabala MD Carlos Zabala MD 04/27/2021 11:43:14 AM Electronically signed by Carlos Zabala MD Number of Addenda: 0 Note Initiated On: 04/27/2021 11:06 AM Estimated Blood Loss: Estimated blood loss was minimal.
[2021-04-27 12:04] VITALS: BP 96/60
== END 2021-04-27 12:07 | disposition home or self-care (01) ==
LOC: M OPP 09:02
PROVIDERS: ATTEND Internal Medicine Gastroenterology
DX: Z12.11 Encounter for screening for malignant neoplasm of colon (principal); Z86.010 Personal history of colon polyps; D12.6 Benign neoplasm of colon, unspecified; K57.30 Diverticulosis of large intestine without perforation or abscess without bleeding; K64.8 Other hemorrhoids; Z79.82 Long term (current) use of aspirin

== ENCOUNTER → 2021-07-09 | Outpatient (CLI) | payer OTHER ==
[~2021-07-09] MED LIST changes: -NS 1,000 ML IV ONE
--- NOTE | 2021-07-09 10:44 | REP ---
INDICATION: NICOTINE DEPENDENCE COMPARISON: 12/06/2019, 11/10/2019 TECHNIQUE: Axial noncontrast images from the thoracic inlet to the upper abdomen using low-dose lung screening technique (LDCT). FINDINGS: Lung gaviria are well aerated and relatively clear. Mild chronic biapical scarring again noted and unchanged. No acute consolidation, suspicious nodule or mass. No effusion. No pneumothorax. Tracheobronchial tree is patent. Stable left ventricular hypertrophy again suggested. IMPRESSION: Lung-RADS category 1. No suspicious nodule or mass. Management recommendations include annual low-dose CT surveillance. Left ventricular hypertrophy again suspected. <Electronically signed by Julius Montalvo > 07/09/21 [id number]
== END ==
LOC: M RAD 10:08
PROVIDERS: ATTEND Nurse Practitioner Family
DX: F17.200 Nicotine dependence, unspecified, uncomplicated (principal)

== ENCOUNTER → 2021-07-30 | Outpatient (CLI) | payer OTHER ==
--- NOTE | 2021-07-30 09:07 | REP ---
INDICATION: EPIGASTRIC PAIN, LIVER BILIARY TREE. COMPARISON: None. TECHNIQUE: Real-time sonographic evaluation of ABDOMEN PERFORMED, WITH DUPLEX DOPPLER EVALUATION OF PORTAL VASCULATURE. FINDINGS: The gallbladder demonstrates no evidence of intraluminal sludge or calculi, wall thickening or pericholecystic fluid. There is no intrahepatic or extrahepatic biliary dilatation, common bile duct measures 5 mm in maximum diameter. The liver and pancreas demonstrates homogeneous echotexture with no gross mass. The pancreas is not optimally seen due to overlying bowel gas. Spleen is normal in size with no intrinsic abnormality, measuring 7.8 cm in length. There is no hydronephrosis bilaterally. There is a simple anechoic cyst in the lower pole the left kidney measuring 8 mm in diameter. The right kidney measures 10.4 x 5.2 x 3.9 cm. Left renal dimensions are 9.7 x 4.6 x 5.2 cm. The abdominal aorta is normal in caliber with no aneurysm. No free fluid is seen. The main portal vein measures 9 mm in diameter. The splenic vein and portal veins demonstrate normal direction of flow, with normal flow velocities and waveforms. There is no portal vein thrombosis. Hepatic veins are patent with no thrombus. Patent main hepatic artery demonstrates peak systolic velocity of 126 centimeters/second. There is mildly increased phasicity of the right and left portal venous waveforms. IMPRESSION: Subcentimeter cyst left kidney. Portal vasculature demonstrates normal direction of flow with no thrombosis. No evidence of hepatic vein thrombosis. <Electronically signed by Sylvester Lamb > 07/30/21 [id number]
== END ==
LOC: M RAD 08:00
PROVIDERS: ATTEND Internal Medicine Gastroenterology
DX: R10.13 Epigastric pain (principal); N28.1 Cyst of kidney, acquired

== ENCOUNTER → 2021-08-21 | Outpatient (CLI) | payer OTHER ==
[~2021-08-21] MED LIST changes: +ATOR1TAB21 PO; +ECOT81TA5 PO; +METO1TAB87 PO; +OMEP40CA4 PO
--- NOTE | 2021-08-21 13:12 | REP ---
INDICATION: Assess stenosis TECHNIQUE: Carotid ultrasonography was performed bilaterally FINDINGS: Right: CCA systolic: 132 centimeters/second CCA diastolic: 31.2 centimeters/second ICA systolic: 101 centimeters/second ICA diastolic: 30.3 centimeters/second ICA CCA ratio: 0.76 Left: CCA systolic: 113 centimeters/second CCA diastolic: 36.0 centimeters/second ICA systolic: 111 centimeters/second ICA diastolic: 37.1 centimeters/second ICA CCA ratio: 0.98 Vertebral artery: Right: Antegrade flow left: Antegrade flow A small amount of plaque is seen along the carotid arterial art. There is no acoustic shadowing. IMPRESSION: According to the SRU criteria there is less than 50% stenosis of the internal carotid artery bilaterally. This is secondary to noncalcified are atheromatous plaque formation. <Electronically signed by Hilario Corona > 08/21/21 0618
== END ==
LOC: M RAD 12:03
PROVIDERS: ATTEND Nurse Practitioner Family
DX: R42 Dizziness and giddiness (principal)

== ENCOUNTER → 2021-08-24 | Outpatient (CLI) | payer OTHER | LOC: M LABSMTC 10:47 | PROVIDERS: ATTEND Anesthesiology | DX: Z01.812 Encounter for preprocedural laboratory examination (principal) ==

== ENCOUNTER 2021-08-28 09:44 | Day surgery (SDC) | payer OTHER ==
[~2021-08-28] VITALS: Ht 170.2 cm; Wt 68.5 kg
[~2021-08-28 09:44] MED LIST changes: +NS 1,000 ML IV ONE
[2021-08-28] MEDS ORDERED: LIDOCAINE 2% 100MG/5ML SDV (FOR ANES.) As Ordered ONE (09:49)
[2021-08-28] MEDS ORDERED: fentaNYL 100 MCG/2 ML INJECTION (J3010) As Ordered ONE (09:49)
[2021-08-28] MEDS ORDERED: propofoL 200 MG/20 ML VIAL As Ordered ONE (09:49)
[2021-08-28 10:45] VITALS: BP 119/69
--- NOTE | 2021-08-28 10:48 | ROOR ---
Patient Name: Med Nevarez Procedure Date: 08/28/2021 10:08 AM Date of : 1960 Age: 61 Room: [facility] Gender: Male Note Status: Finalized Procedure: Upper GI endoscopy Indications: Dyspepsia, Portal hypertension with suspected esophageal varices Providers: Carlos Zabala MD Referring MD: Catrachita Martinez NP Requesting Provider: Medicines: Monitored Anesthesia Care Complications: No immediate complications. Procedure: Pre-Anesthesia Assessment: - Prior to the procedure, a History and Physical was performed, and patient medications and allergies were reviewed. The patient is competent. The risks and benefits of the procedure and the sedation options and risks were discussed with the patient. All questions were answered and informed consent was obtained. Patient identification and proposed procedure were verified by the physician, the nurse and the anesthesiologist in the procedure room. Mental Status Examination: alert and oriented. Airway Examination: normal oropharyngeal airway and neck mobility. Respiratory Examination: clear to auscultation. CV Examination: normal. Prophylactic Antibiotics: The patient does not require prophylactic antibiotics. Prior Anticoagulants: The patient has taken no previous anticoagulant or antiplatelet agents. ASA Grade Assessment: II - A patient with mild systemic disease. After reviewing the risks and benefits, the patient was deemed in satisfactory condition to undergo the procedure. The anesthesia plan was to use monitored anesthesia care (MAC). Immediately prior to administration of medications, the patient was re-assessed for adequacy to receive sedatives. The heart rate, respiratory rate, oxygen saturations, blood pressure, adequacy of pulmonary ventilation, and response to care were monitored throughout the procedure. The physical status of the patient was re-assessed after the procedure. The Endoscope was introduced through the mouth, and advanced to the second part of duodenum. The upper GI endoscopy was accomplished without difficulty. The patient tolerated the procedure well. Findings: The examined esophagus was normal. The Z-line was regular and was found at the gastroesophageal junction. There is no endoscopic evidence of varices in the entire esophagus. Scattered mild inflammation characterized by erythema and granularity was found in the gastric antrum. Biopsies were taken with a cold forceps for Helicobacter pylori testing. Verification of patient identification for the specimen was done by the physician and nurse using the patient's name, date and medical record number. Estimated blood loss was minimal. The duodenal bulb and second portion of the duodenum were normal. Impression: - Normal esophagus. - Z-line regular, at the gastroesophageal junction. - Gastritis. Biopsied. - Normal duodenal bulb and second portion of the duodenum. Recommendation: - Patient has a contact number available for emergencies. The signs and symptoms of potential delayed complications were discussed with the patient. Return to normal activities tomorrow. Written discharge instructions were provided to the patient. - High fiber diet. - Continue present medications. - Await pathology results. - Telephone GI clinic for pathology results in 2 weeks. - Return to GI clinic if persistent symptoms or new symptoms. - Return to primary care physician. Procedure Code(s): --- Professional --- 26422, Esophagogastroduodenoscopy, flexible, transoral; with biopsy, single or multiple Diagnosis Code(s): --- Professional --- K29.70, Gastritis, unspecified, without bleeding R10.13, Epigastric pain K76.6, Portal hypertension CPT copyright 2019 [employer]. All rights reserved. The codes documented in this report are preliminary and upon hard rock miner review may be revised to meet current compliance requirements. Carlos Zabala MD Carlos Zabala MD 08/28/2021 10:47:37 AM Electronically signed by Carlos Zabala MD Number of Addenda: 0 Note Initiated On: 08/28/2021 10:08 AM Estimated Blood Loss: Estimated blood loss was minimal.
== END 2021-08-28 11:03 | disposition home or self-care (01) ==
LOC: M OPP 09:44
PROVIDERS: ATTEND Internal Medicine Gastroenterology
DX: K29.70 Gastritis, unspecified, without bleeding (principal); K76.6 Portal hypertension; R10.13 Epigastric pain; Z79.82 Long term (current) use of aspirin; Z79.899 Other long term (current) drug therapy
CPT/HCPCS: 43239; 88305; J3010

== ENCOUNTER → 2021-09-08 | Outpatient (REF) | payer OTHER ==
[~2021-09-08] MED LIST changes: -NS 1,000 ML IV ONE
== END ==
LOC: M LAB REF 17:20
PROVIDERS: ATTEND Surgery
DX: L72.11 Pilar cyst (principal)